=== PATIENT | male | born 1940 | race Caucasian/White ===

== ENCOUNTER 2019-03-18 16:44 | Emergency (ER) | payer MEDICARE, BC ==
[2019-03-18] MEDS ORDERED: 0.9 % SODIUM CHLORIDE 1000ML 1,000 ML IV ONE (17:01)
[2019-03-18] MEDS ORDERED: FENTANYL PF 100MCG/2ML VIAL IVP ONE ×2 (17:06→20:01)
--- NOTE | 2019-03-18 17:07 | Emergency Department Record ---
History of Present Illness - General Chief complaint: Head Injury Stated complaint: FALL/ LAC ON HEAD Time Seen by Provider: 03/18/19 16:57 Source: Patient Mode of Arrival: Ambulatory Limitations: No limitations - History of Present Illness Initial comments: 78 yo male presents after a 7-8 foot fall. He reports he has a walk out basement. On the side of the house he was cleaning his eave troughs. He mis- stepped and fell. He did hit his head on some rocks. He had a positive LOC. He awoke to his dog licking face. He thinks the LOC was brief. His neighbor friend stated he was a little confused initially but now at baseline. He recalls the event at this time. He is not on any blood thinners. He has mild neck pain and right flank pain. No extremity pain. He thinks he is up to date on immunizations for tetanus Complaint: Head injury, Fall -: Minutes(s) Arrival Conditions: Other (Ambulated to the ED) Mechanism of Injury: Mechanical fall Location: Parietal Loss of Consciousness: Second(s) Place: Home Radiation: Neck Severity: Moderate Quality: Aching Consistency: Constant Provoking factors: Other (miss stepped) Other Injuries: Laceration Context: Other (No blood thinners) Associated Symptoms: Denies other symptoms - Related Data Allergies/Adverse reactions: Allergies Allergy/AdvReac Type Severity Reaction Status Date / Time No Known Drug Allergies Allergy Unverified 03/15/19 08:59 Review of Systems Constitutional: Denies: Chills, Fever, Malaise, Weakness Eyes: Denies: Eye discharge ENT: Denies: Congestion, Throat pain Respiratory: Denies: Cough, Dyspnea Cardiovascular: Denies: Chest pain, Palpitations, Syncope Endocrine: Denies: Fatigue Gastrointestinal: Denies: Abdominal pain, Diarrhea, Nausea, Vomiting Genitourinary: Denies: Dysuria, Frequency, Hematuria Musculoskeletal: Reports: Neck pain. Denies: Arthralgia, Back pain, Myalgia Skin: Denies: Bruising, Change in color, Rash Neurological: Reports: Headache Psychiatric: Denies: Anxiety Hematological/Lymphatic: Denies: Easy bleeding, Easy bruising Physical Exam - General General Appearance: Alert, Oriented x3, Cooperative, No acute distress Limitations: No limitations - Head Head exam: negative: Atraumatic, Normal inspection Head exam detail: Laceration Image of Face/Head: 1 - stellate, irregular laceration with abrasions and indistinct borders in areas. No debris or FB, minimal bleeding - Eye Eye exam: Normal appearance, PERRL. negative: Conjunctival injection, Scleral icterus Pupils: negative: Irregular, Unequal - ENT ENT exam: Normal exam, Mucous membranes moist Ear exam: Normal external inspection Nasal Exam: Normal inspection Mouth exam: Normal external inspection - Neck Neck exam: Normal inspection - Respiratory Respiratory exam: Normal lung sounds bilaterally. negative: Respiratory distress - Cardiovascular Cardiovascular Exam: Regular rate, Normal rhythm, Normal heart sounds Peripheral Pulses: 2+: Radial (R), Radial (L) - GI/Abdominal GI/Abdominal exam: Soft, Tenderness (tender right flank, normal inspection) - Rectal Rectal exam: Deferred - exam: Deferred - Extremities Extremities exam: negative: Normal inspection (superficial right forearm abrasion) Image of Full Body: 1 - abrasion - Back Back exam: Reports: CVA tenderness (R), Tenderness, Vertebral tenderness. Denies: Full ROM - Neurological Neurological exam: Alert, Oriented X3. negative: Altered, Motor sensory deficit - Psychiatric Psychiatric exam: Normal affect, Normal mood. negative: Agitated, Anxious - Skin Skin exam: Abrasion, Dry, Normal color, Warm Course - Reevaluation(s) Reevaluation #1: GCS is 15 Given the mechanism the patient was made a trauma alert 03/18/19 17:19 03/18/19 19:03 The HCT was negative for acute injury The Cervical CT is negative for negative for acute injury or fracture C Collar was removed Procedure: 4 cm laceration of the scalp Wound was cleaned and prepped in sterile fashion, no residual FB identified on examination. The wound was copiously irrigated with NS Wound was anesthetized with 5 mL of 1% Lidocaine with epinephrine The laceration was repaired with Prolene 4-0 sutures in interrupted fashion piecing together the irregular borders Patient tolerated the procedure well without complications. We discussed home care, reasons for immediate return if any concerns, and suture removal in 14 days 03/18/19 19:[address] was reviewed. T 3 superior end plate fracture. Mild. No retropulsion. The CT of the abdomen and pelvis was reviewed. Fractures of the R 10th, 11th, and 12th posterior ribs; right 10th transverse process fracture. left L3 and L4 transverse fractures. No solid organ injury. 4cm retroperitoneal mass slowly enlarging from prior study. Recommend biopsy to rule out neoplasm. Patient made aware. [facility] contacted 03/18/19 19:14 03/18/19 19:34 Dr Davis of Trauma and Dr Galloway of the ED accept the patient for transfer for trauma evaluation. 03/18/19 19:36 Dr Jama of [facility] notified of transfer Medical Decision Making - Lab Data Result diagrams: 03/18/19 17:00 03/18/19 17:00 Disposition Disposition: Discharge Clinical Impression: Multiple transverse process fractures Scalp laceration Qualifiers: Encounter type: initial encounter Qualified Code(s): S01.01XA - Laceration without foreign body of scalp, initial encounter Ribs, multiple fractures Qualifiers: Encounter type: initial encounter Fracture type: closed Laterality: right Qualified Code(s): S22.41XA - Multiple fractures of ribs, right side, initial encounter for closed fracture Disposition: Home, Self-Care Transfer To: [facility] Reason For Transfer: Multiple rib fractures, TP fractures Accepting Physician: Nilesh Time Discussed w/Accepting Physician: 19:22 Condition: (1) Good Instructions: Laceration (ED), Concussion (ED) Additional Instructions: Review this ER visit and the tests performed with your family doctor Return in 14 days to have the sutures removed Return sooner if the area has redness, pus, swelling or any signs of infection Return to the ER for a recheck if worse, any new concerns or questions Take the prescriptions provided as directed Forms: Patient Portal Access Time of Disposition: 19:22 Quality - Quality Measures Quality Measures: N/A - Blood Pressure Screening Does Patient Have Any of the Following: No Blood Pressure Classification: Hypertensive Reading Systolic Measurement: 152 Diastolic Measurement: 91 Screening for High Blood Pressure: < Pre-Hypertensive BP, F/U Documented > [[id number]] Pre-Hypertensive Follow-up Interventions: Referral to alternative/primary care provider.
[2019-03-18 17:12] LABS: ABSOLUTE NEUTROPHIL COUNT 6.68; MEAN CELL VOLUME 88.7 fl (81-97); MEAN CORPUSCULAR HEMOGLOBIN 29.6 pg (27-33); MEAN CORPUSCULAR HGB CONC 33.3 g/dl (32-36); MEAN PLATELET VOLUME 9.8 fl (7.4-10.4); PLATELET COUNT 295 K/uL (130-400); RED BLOOD COUNT 5.41 M/uL (4.40-5.70); RED CELL DISTRIBUTION WIDTH 13.8 % (11.5-14.5); WHITE BLOOD COUNT W/O DIFF 9.1 K/uL (4.2-12.2)
[2019-03-18 17:22] LABS: PLATELET ESTIMATE NORMAL (NORMAL)
[2019-03-18 17:25] LABS: BLOOD UREA NITROGEN 27 mg/dL (8-23); CREATININE 1.1 mg/dL (0.7-1.2); EST GLOMERULAR FILTRATION RATE > 60 mL/min; PARTIAL THROMBOPLASTIN TIME 25.7 SECONDS (24.5-39.1)
[2019-03-18 17:26] LABS: TOTAL PROTEIN 7.9 g/dL (6.6-8.7)
[2019-03-18 17:28] LABS: GLUCOSE,RANDOM 134 mg/dL (74-109)
[2019-03-18 17:31] LABS: ALB/GLOB RATIO 1.5 (1.1-1.8); ALBUMIN 4.7 g/dL (4.0-5.0); ALKALINE PHOSPHATASE 71 U/L (40-129); ALT/SGPT 26 U/L (<41); AST/SGOT 28 U/L (10.0-50.0)
[2019-03-18 17:53] LABS: ABO GROUP A; ANTIBODY SCREEN NEGATIVE (NEGATIVE); RH TYPE NEGATIVE
--- NOTE | 2019-03-20 06:56 | CT SCAN REPORT ---
DATE: 03/18/2019. EXAM: CT OF THE HEAD WITHOUT CONTRAST. HISTORY: FALL WITH HEAD LACERATION. TECHNIQUE: Standard CT imaging of the head without intravenous contrast. HAND DOMINANCE: Unknown. COMPARISON: None. FINDINGS: The ventricles and foci are prominent from generalized volume loss. The posterior fossa is partially obscured due to streak artifact from dental hardware. Extensive hypodensity throughout the white matter is nonspecific but likely chronic small-vessel ischemic changes. No significant mass effect or midline shift. No intracranial hemorrhage or extra-axial fluid collection is identified. There is a posterior right-sided scalp hematoma and laceration. No underlying calvarial fracture. IMPRESSION: POSTERIOR RIGHT-SIDED SCALP HEMATOMA AND LACERATION. NO EVIDENCE FOR ACUTE INTRACRANIAL ABNORMALITY. EXTENSIVE CHRONIC SMALL-VESSEL ISCHEMIC CHANGES. [facility] [id number] [facility]
--- NOTE | 2019-03-20 07:04 | CT SCAN REPORT ---
DATE: 03/18/2019. EXAM: CT OF THE CERVICAL SPINE WITHOUT CONTRAST. HISTORY: FALL. TECHNIQUE: Standard CT imaging of the cervical spine without intravenous contrast. COMPARISON: None. FINDINGS: There is a small amount of fluid in the left mastoid air cells. Alignment, vertebral body heights, and disc spaces are preserved. Mild multilevel endplate spurring. No fracture is identified. No significant osseous narrowing of the neural foramina or spinal canal. The prevertebral soft tissues are within normal limits. IMPRESSION: NO EVIDENCE FOR ACUTE FRACTURE OR MALALIGNMENT IN THE CERVICAL SPINE. Job [facility]: [id number] [facility]
--- NOTE | 2019-03-20 07:15 | CT SCAN REPORT ---
DATE: 03/18/2019. EXAM: CT OF THE CHEST WITH CONTRAST. HISTORY: TRAUMA, FALL. TECHNIQUE: Standard CT imaging of the chest following the intravenous administration of contrast. COMPARISON: None. FINDINGS: There are coronary artery and aortic valve calcifications. The thoracic aorta demonstrates mild calcification. No mediastinal or hilar adenopathy. The abdomen and pelvis findings are dictated separately. There is a tiny hiatal hernia. There is minimal superior endplate compression fracture of T3 without significant loss of vertebral body height. No retropulsion. This fracture is age indeterminate but may be acute in the setting of focal pain. No rib fracture is identified. Mild ground glass and streaky opacities in both lung bases, likely atelectasis. No pleural effusion or pneumothorax. IMPRESSION: 1. MINIMAL T3 SUPERIOR ENDPLATE COMPRESSION FRACTURE WITHOUT SIGNIFICANT LOSS OF VERTEBRAL BODY HEIGHT. THE FRACTURE IS AGE INDETERMINATE BUT MAY BE ACUTE IN THE SETTING OF FOCAL PAIN. NO OTHER EVIDENCE FOR ACUTE TRAUMA IN THE THORAX. 2. CORONARY ARTERY DISEASE. Job [facility]: [id number] [facility]
--- NOTE | 2019-03-20 07:33 | CT SCAN REPORT ---
DATE: 03/18/2019. EXAM: CT OF THE ABDOMEN AND PELVIS WITH CONTRAST. HISTORY: FALL, TRAUMA. TECHNIQUE: Standard CT imaging of the abdomen and pelvis following the intravenous administration of contrast. Delayed images are obtained through the kidneys. COMPARISON: 10/14/2015. FINDINGS: The chest findings are dictated separately. The liver and gallbladder appear normal. The common bile duct is not dilated. The pancreas is unremarkable. The spleen is normal in size without injury. The adrenal glands and kidneys appear normal. The stomach and small bowel are unremarkable. There is colonic diverticulosis without evidence for diverticulitis. The prostate gland is mildly enlarged and effacing the floor of the bladder. The bladder is otherwise unremarkable. No free fluid or free air is seen. The appendix is normal. Small fat-containing inguinal hernias bilaterally. There is an enhancing left retroperitoneal mass measuring 4.9 x 4.4 cm versus 4.2 x 4.1 cm previously. This is below the left renal vein. No abdominal aortic aneurysm. There is a fracture of right rib 10 posteriorly, nondisplaced; 11 posteriorly, mildly nondisplaced; and 12 posteriorly nondisplaced. There is a nondisplaced fracture of the right T10 transverse process. Fractures of the left L3 and L4 transverse processes which are mildly displaced. IMPRESSION: 1. FRACTURES OF RIGHT RIBS 10, 11, AND 12, AND OF THE RIGHT T10 TRANSVERSE PROCESS. LEFT TRANSVERSE PROCESS FRACTURES OF L3 AND L4. 2. NO EVIDENCE FOR SOLID-ORGAN INJURY IN THE ABDOMEN OR PELVIS. 3. SLOWLY ENLARGING 4.9 CM LEFT RETROPERITONEAL MASS WITH COMPARISON TO 2016. THIS MAY REPRESENT SLOWLY ENLARGING NEOPLASM OR ENLARGED LYMPH NODE. CONSIDER BIOPSY FOR FURTHER EVALUATION. Job Number: [id number] [facility]
== END 2019-03-18 20:10 | disposition home or self-care (01) ==
LOC: ER 16:44
DX: S22.41XA Multiple fractures of ribs, right side, initial encounter for closed fracture (principal); S01.01XA Laceration without foreign body of scalp, initial encounter; S50.811A Abrasion of right forearm, initial encounter; S32.038A Other fracture of third lumbar vertebra, initial encounter for closed fracture; S32.048A Other fracture of fourth lumbar vertebra, initial encounter for closed fracture; S22.078A Other fracture of T9-T10 vertebra, initial encounter for closed fracture; R19.09 Other intra-abdominal and pelvic swelling, mass and lump; R42 Dizziness and giddiness; I10 Essential (primary) hypertension; W01.198A Fall on same level from slipping, tripping and stumbling with subsequent striking against other object, initial encounter; Y92.007 Garden or yard of unspecified non-institutional (private) residence as the place of occurrence of the external cause
CPT/HCPCS: 12032; 70450; 71260; 72125; 74177; 80053; 80320; 85027; 85610; 85730; 86850; 86900; 86901; 96361; 96374; 96376; 99285; J7030